=== PATIENT | female | born 1950 | race Caucasian/White ===

== ENCOUNTER → 2021-05-08 | Outpatient (CLI) | payer MEDICARE, OTHER ==
[~2021-05-08] VITALS: Ht 157.5 cm; Wt 78.5 kg
[2021-05-08] VITALS (11 sets, daily range): BP systolic 98–135; BP diastolic 44–75
[~2021-05-08] MED LIST: ASA81BEC PO; COLACE100 MG PO; IBUPROFEN 200200 M1 PO; LIPITOR40 MG PO; OZEMPIC1 MG/0.71 SUBQ; TRESIBA100 UNIT/1 SUBQ; ZOLOFT100 MG PO
[2021-05-08 08:21] LABS: HEMATOCRIT 39.4 % (37.0-47.0); HEMOGLOBIN 12.9 gm/dL (12.0-15.0); MCH 30.1 pg (26.0-34.0); MCHC 32.8 g/dL (28.0-37.0); MCV 91.8 fL (80.0-100.0); RBC 4.3 mil/uL (4.20-5.00); RDW-CV 13.1 % (10.5-14.5); WBC 9.6 thou/uL (4.0-11.0)
[2021-05-08 08:43] LABS: ANION GAP 11 mmol/L (7-16); BUN 23 mg/dL (7-18); CALCIUM 8.3 mg/dL (8.5-10.1); CHLORIDE 105 mmol/L (98-107); CO2 26 mmol/L (21-32); CREATININE 1.6 mg/dL (0.6-1.3); GLUCOSE 132 mg/dL (70-99); POTASSIUM 3.7 mmol/L (3.5-5.1); SODIUM 142 mmol/L (136-145)
[2021-05-08 08:45] LABS: APTT 25.5 Seconds (25.0-31.3); PROTIME 10.4 Seconds (9.20-11.50)
[2021-05-08 08:54] LABS: ALBUMIN 3.3 g/dL (3.4-5.0); ALKALINE PHOSPHATASE 115 U/L (46-116); SGOT 15 U/L (15-37); SGPT 16 U/L (30-65); TOTAL BILIRUBIN 0.4 mg/dL (<0.1-1.0); TOTAL PROTEIN 8.3 g/dL (6.4-8.2); TRIGLYCERIDE 178 mg/dL (<150); VLDL 36 mg/dL (<40)
[2021-05-08 08:57] LABS: SERUM ASSESSMENT Y
[2021-05-08 09:13] LABS: CHOLESTEROL 225 mg/dL (<200); HDL CHOLESTEROL 54 mg/dL (>40); LDL CHOLESTEROL 136 mg/dL (<100); TC:HDL 4.2 Ratio (Not establshd)
--- NOTE | 2021-05-08 09:19 | EKG ---
[place] [address] ELECTROCARDIOGRAM REPORT Name: HECTOR MAI Room: 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: : 1950 Requested By: Anish Jules Order Number: [id number] Olinda MD: Anish Jules Measurements Intervals Gary Rate: 86 P: 63 OK: 142 QRS: 16 QRSD: 77 T: 63 QT: 382 QTc: 457 Interpretive Statements Sinus rhythm Baseline wander in lead(s) V3 No previous ECG available for comparison Electronically Signed On 05-08-2021 9:19:34 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
[2021-05-08 10:11] LABS: BE 0.2 mmol/L (-2 to +3); PCO2 VENOUS 45.5 mmHg (41.0-51.0); PO2 VENOUS 36.8 mmHg (35.0-45.0)
[2021-05-08 10:14] LABS: BE -3.3 mmol/L (-2 to +3); PCO2 33.4 mmHg (35.0-45.0); pH 7.406 (7.340-7.450)
--- NOTE | 2021-05-08 17:06 | CARD ---
[address] [address] CARDIAC CATH REPORT Name: HECTOR MAI Room: [facility]#: [id number] Admission: 05/08/21 Attend Phys: Anish Jules MD, F Discharge: Date of : 46 Report #: [id number] THIS REPORT FOR: cc: Sahara Aly MD, Emily G. MD Blick,Anish Kent MD [facility] ~ APPROVED REPORT Study performed: 05/08/2021 08:47:05 Patient Details Patient Status: Out-Patient Room #: The patient is a 70 year-old female Event Personnel Dr. Anish Jules MD: Projector Booth Operator; Lalita Pierce, NICHOLAS & Phillip Manriquez RN: Monitor; Lisa Ulloa: Arc Welder Apprentice; Cass Valdez, RT: Scrub Procedures Performed right and left heart catheterization with aortic root injection Indication Valvular heart disease Risk Factors Dysplipidemia , Hypercholesterolemia Admission/Lab Medications/Medications given during procedure Aspirin Procedure Narrative The patient was brought electively to the Cardiac Catheterization Laboratory and was prepped and draped in a sterile manner. The right femoral was infiltrated with 1% Lidocaine subcutaneous anesthesia. IV conscious sedation was used throughout procedure with appropriate monitoring and was performed in the presence of a registered nurse who was an independent trained observer other than the physician performing the procedure. A Right Heart Catheterization was performed with a 7 Fr. Meriden-Angie catheter and pressure were recorded. Cardiac outputs were obtained by the Thermal Dilution method. A 7 sheath was inserted into the right femoral artery. [place] [address] CARDIAC CATH REPORT Name: HECTOR MAI Room: [facility]#: [id number] Admission: 05/08/21 Attend Phys: Anish Jules MD, F Discharge: Date of : 46 Report #: [id number] performed using coronary diagnostic catheters. The right coronary system was accessed and visualized with a Diagnostic catheter. The left coronary system was accessed and visualized with a Diagnostic catheter. The left ventricle was accessed and visualized with a Diagnostic catheter. Left ventricular/Aortic Valve gradient assessed via catheter pullback. Left ventriculogram was performed in GRAYD projection. An aortogram of the ascending aorta was performed. Closure device was deployed with a 6 Fr Mynx. Hemostasis was obtained with manual pressure following sheath removal without any complications. The patient tolerated the procedure well and there were no complications associated with the procedure. A hematoma occurred. 7 czech sheat was placed in the right femoral vein which was removed after the procedure and hemostasis achieved by manual pressure. The patient was unable to void following the procedure, and a Tolentino catheter was placed. The Hematoma was small and no other complications present at this time. Intraoperative Conscious Sedation Sedation start time: 9:53 Case end Time: 10:29 Fentanyl 25.0 mcg Fluoro Time: 6.9 minutes Dose: DAP 25624 cGycm2 644 mGy Contrast Type and Amount: Visipaque 120ml Coronary Angiography The patient's coronary anatomy is right dominant. Diagnostic Cath Left Main 0% stenosis LAD 90% stenosis noted just prior to the takeoff of a large second diagonal branch Diagonal 2 large vessel with 50% proximal stenosis Circumflex 0stial 60% stenosis. Distal circumflex was a small artery and had a 80% stenosis. Right Coronary 40% mid stenosis R PDA 50% proximal stenosis Left Ventriculography The left ventricle is normal in size with normal contractility. The left ventricular ejection fraction is estimated to be 60-65%. Left ventricular wall motion abnormalities are not present. There is no mitral insufficiency. No aortic insufficiency was noted [place] [address] CARDIAC CATH REPORT Name: HECTOR MAI Room: [facility]#: [id number] Admission: 05/08/21 Attend Phys: Anish Jules MD, F Discharge: Date of : 46 Report #: [id number] Hemodynamics The right atrial mean pressure is 2 mmHg. The right ventricular pressure is 34/6 mmHg. The pulmonary artery pressure is 30/12 mmHg with a mean of 21 mmHg. The mean pulmonary capillary wedge pressure is 15 mmHg. The aortic pressure is 155/75 mmHg with a mean of 109 mmHg. The left ventricular pressure is 178/5 mmHg with a mean of 22 mmHg. The left ventricular end diastolic pressure is 12 mmHg. Pullback from the left ventricle to the aorta revealed a 25 mm gradient across the aortic valve. PaO2 saturation is 67 %. Arterial saturation is 94 %. The cardiac output and index were assessed using Wilver and thermodilution. The cardiac output using the Wilver method is 4.04 L/min. The cardiac index using the Wilver method is 2.22 L/min/m2. The cardiac output using thermo method is 4.43 L/min. The cardiac index using thermo method is 2.43 L/min/m2. The peak gradient across the aortic valve is 25 mmHg. The aortic valve area is 0.9 cm2. End diastolic mitral valve gradient is 0 mmHg. Conclusion 1. 90% stenosis of the mid LAD 2. 60% ostial circumflex stenosis 3. LVEF 60-65% 4. [place] aortic stenosis with a valve area of 0.9 cm2 Recommendations consider stenting of the mid LAD if the patient experiences refractoy angina despite medications. follow echo in 1 year. <ELECTRONICALLY SIGNED> By: Anish Jules MD, FACC 05/08/211704 04 04Anish Jules MD, FACC /INF
--- NOTE | 2021-05-09 14:38 | H ---
[place] [address] HISTORY AND PHYSICAL Name: HECTOR MAI Room: [facility]#: [id number] Admission: 05/08/21 Attend Phys: Anish Jules MD, F Discharge: Date of : 46 Report #: [id number] THIS REPORT FOR: cc: Sahara Aly MD,Anish Olivo MD, MD [facility] ~ cc: Sahara Aly MD DATE OF SERVICE: 05/08/2021 HISTORY OF PRESENT ILLNESS: The patient is a 70-year-old single white female who was brought to the outpatient department to undergo diagnostic cardiac catheterization. The patient apparently has had a heart murmur for years, but never has seen a securities compliance examiner or had a cardiac workup. Previous echocardiogram in 2017 showed only mild aortic stenosis. She does complain of exertional dyspnea, but denies any chest pain, lightheadedness, syncope, or lower extremity edema. She had a repeat heart catheterization in February that showed an ejection fraction of 60% with 46 mm gradient across the aortic valve. She was referred to my office for evaluation. I saw her in Cardiology Clinic on 04/03/2021. I recommended cardiac catheterization to assess the severity of her aortic stenosis. PAST MEDICAL HISTORY: She has had hysterectomy, tonsillectomy, and wrist surgery. She has a history of diabetes, hyperlipidemia, and chronic kidney disease. No history of hypertension. MEDICATIONS: On admission include aspirin, Lipitor, insulin, Ozempic, and Zoloft. ALLERGIES: She has no known drug allergies. FAMILY HISTORY: Negative for heart disease. SOCIAL HISTORY: She is single, lives in [place]. She is not working at this time. No history of smoking. Rarely drinks alcohol. REVIEW OF SYSTEMS: There is no history of stroke, asthma, or liver disease. She does have chronic kidney disease, no cancer. She had a recent carotid Doppler study that showed plaque formation. She was noted to have an abnormal thyroid. PHYSICAL EXAMINATION: GENERAL: Revealed an elderly female, appeared in no acute distress. VITAL SIGNS: Blood pressure 120/80, pulse is 70. CHEST: Clear to auscultation. CARDIAC: Regular rate and a grade 4 [place] [address] HISTORY AND PHYSICAL Name: MAIHECTOR Room: [facility]#: [id number] Admission: 05/08/21 Attend Phys: Anish Jules MD, F Discharge: Date of : 46 Report #: [id number] ABDOMEN: Soft. EXTREMITIES: Had no edema. SKIN: Cool and dry. NEUROLOGIC: Nonfocal. LABORATORY DATA: Recent ECG showed a sinus rhythm with incomplete right bundle branch block. Previous lab work included LDL 151, triglyceride 238, and creatinine 1.8. IMPRESSION AND RECOMMENDATIONS: 1. Severe aortic stenosis. Recommend cardiac catheterization to assess the aortic valve. 2. Diabetes. 3. Hyperlipidemia. The patient is on a statin drug. 4. Mild carotid plaque. 5. Chronic kidney disease. 6. Abnormal thyroid. The patient is scheduled for a thyroid ultrasound next week. <ELECTRONICALLY SIGNED> By: Anish Jules MD, [facility] 05/09/21 1438 [id number] Yoli Jules MD, FACC /nt
== END | disposition home or self-care (01) ==
LOC: M.CL 04-24 09:00
PROVIDERS: ATTEND Internal Medicine Cardiovascular Disease
DX: I35.9 Nonrheumatic aortic valve disorder, unspecified (principal); I25.10 Atherosclerotic heart disease of native coronary artery without angina pectoris; E78.00 Pure hypercholesterolemia, unspecified; E78.5 Hyperlipidemia, unspecified; E11.22 Type 2 diabetes mellitus with diabetic chronic kidney disease; N18.9 Chronic kidney disease, unspecified; Z98.890 Other specified postprocedural states; Z79.899 Other long term (current) drug therapy; Z90.710 Acquired absence of both cervix and uterus; Z79.82 Long term (current) use of aspirin; Z20.822 Contact with and (suspected) exposure to COVID-19